=== PATIENT | female | born 2000 | race Two or more races ===

== ENCOUNTER 2021-12-12 08:49 | Emergency (ER) | payer OTHER, SELFPAY ==
--- NOTE | ~2021-12-12 | US_ITS ---
EXAMINATION: US PELVIS CLINICAL INFORMATION: Right lower quadrant pain. Vaginal bleeding The patient reports no chance of COMPARISON: None TECHNIQUE: Ultrasound of the pelvis is performed using both transabdominal and transvaginal transducers along with Doppler. Transvaginal imaging is performed due to inadequate visualization transabdominally. FINDINGS: Uterus: No suspicious abnormality in the region of the vagina. There may be a small nabothian cyst. The uterus is retroverted and measures 6.6 x 4.2 x 5.6 cm. The double wall endometrial thickness is 1.3 cm. Consistent with current menses The uterus is smooth in contour and has normal myometrial echogenicity. No visible fibroid. Adnexa: Both ovaries are visualized. Right ovary measures 2.1 x 1.9 x 1.5 cm. The estimated right ovarian volume is 3 mL. No suspicious right adnexal mass or collection. However, despite repeated efforts no reliable color signal or Doppler spectral waveform could be obtained from the right ovary. This is of uncertain significance. There was some tenderness to transducer pressure in the region of the right ovary. Left ovary measures 4.0 x 2.0 x 2.2 cm. The estimated left ovarian volume is 9 mL. No suspicious left adnexal mass or collection. Small physiologic cysts. There is color signal present within the left ovary. Small amount of nonspecific free pelvic fluid There was some blood present on the transducer cover during the exam. US/US pelvic and transvaginal IMPRESSION: There is no suspicious mass or collection. The ovaries are not enlarged. However, despite repeated efforts no color signal or Doppler spectral could be obtained from the right ovary. This is of uncertain if any clinical significance
[2021-12-12 08:54] VITALS: BP 127/82; PULSE 104; RESP 19; TEMP 36.6; O2SAT 99; BMI 31.0
--- NOTE | 2021-12-12 10:30 | ED_ITS ---
HPI - General Adult General Chief complaint: General Medical Stated complaint: lower abd pain Time Seen by Provider: 12/12/21 10:30 Source: patient Mode of arrival: ambulatory Limitations: no limitations History of Present Illness HPI narrative: Patient is a 21 year old female presenting to the emergency department today with abdominal pain and vaginal bleeding. Patient states that she has been on her period for 6 months now and last month, started control, but that has not stopped her period like she wanted it to. Patient states that the vaginal bleeding is not heavy and she is not soaking through greater than 1 pad an hour. Patient states that her abdominal pain is diffuse. Patient states that she was seen at [facility] days ago, where they did a CT scan, that was negative for anything. Patient states that the pain has been the same and has not gotten any worse. Patient denies any history of children. Patient denies any dizziness, lightheadedness, nausea, vomiting, fever, chills, blurry vision, double vision, loss of vision, chest pain, difficulty breathing, shortness of breath, back pain, night sweats, pain with urination, increased urinary frequency, increased urinary urgency, syncope or a near syncopal episode, recent trauma or falls, bowel incontinence, bladder incontinence, bowel retention, bladder retention, or any other complaints at this time. Onset (ago): month(s) Location: abdomen Radiation: non-radiation Severity: mild Severity scale (1-10): 3 Quality: dull Pain Consistency: intermittent Relieving factors: none Exacerbating factors: none Associated symptoms: other (vaginal bleeding) Treatments prior to arrival: none Related Data Previous Rx's Medication Instructions Recorded doxycycline hyclate 100 mg tablet 100 mg PO BID 14 Days #28 tab 12/12/21 metronidazole 500 mg tablet 500 mg PO BID 14 Days #28 tab 12/12/21 Allergies Allergy/AdvReac Type Severity Reaction Status Date / Time No Known Allergies Allergy Verified 12/12/21 10:43 Review of Systems Constitutional: Constitutional: Reports no additional constitutional complaints, Denies chills, Denies fever(s) and Denies night sweats Eyes: Eyes: Reports no additional eye complaints, Denies blurry vision, Denies change in vision, Denies diplopia, Denies eye discharge, Denies loss of vision and Denies eye pain ENT: Denies dizziness Cardiovascular: Cardiovascular: Reports no additional cardiovascular complaints, Denies chest pain, Denies lightheadedness, Denies Loss of Consciousness and Denies dyspnea Respiratory: Respiratory: Reports no additional respiratory complaints and Denies dyspnea Gastrointestinal: Gastrointestinal: Reports no additional gastrointestinal complaints, Reports abdominal pain, Denies melena, Denies hematochezia, Denies change in bowel habits and Denies change in stool character Genitourinary: Genitourinary: Reports abnormal menses, Reports abnormal vaginal bleeding, Denies hematuria, Denies urinary frequency, Denies dysuria, Denies urinary incontinence, Denies urinary hesitancy and Denies urinary urgency Musculoskeletal: Musculoskeletal: Reports no additional musculoskeletal complaints, Denies numbness and Denies tingling Neurologic: Denies dizziness, Denies loss of vision, Denies numbness and Denies tingling Psychiatric: Psychiatric: Reports no additional psychiatric complaints Endocrine: Endocrine: Reports no additional endocrine complaints Hematologic/Lymphatic: Hematologic/Lymphatic: Reports no additional hematologic/lymphatic complaints Allergic/Immunologic: Allergic/Immunologic: Reports no additional allergic/immunologic complaints PMFSH Past Medical History Attestation statement: The following information was validated with the patient. Source: old records reviewed : 0 Para: 0 Total number of abortions (spontaneous and elective): 0 Social History Social History Alcohol intake: never Patient Tobacco Use Status: Never used Tobacco Use of substances other than those prescribed or required for medical reasons: No Advance Directives: No Advance Directives Information Provided: Yes Patient : No Physical Exam ED Vital Signs: Vital Signs - 24 hr 12/12/21 08:54 12/12/21 12:00 12/12/21 14:00 Temperature 98 F 97.5 F 98.5 F Pulse Rate 104 H 98 94 Respiratory Rate 19 18 16 Blood Pressure 127/82 106/49 L 108/73 Pulse Oximetry 99 98 100 12/12/21 15:08 12/12/21 15:58 Temperature 98.1 F Pulse Rate 85 97 Respiratory Rate 18 16 Blood Pressure 112/67 109/71 Pulse Oximetry 100 99 BMI result Body Mass Index 31.0 Const General: cooperative, no acute distress, alert and awake Nutritional Appearance: well nourished Orientation/consciousness: patient oriented x3 Limitations: no limitations HENMT Head: Yes normal to inspection and Yes atraumatic Ears: hearing grossly normal bilaterally and external ears normal General nose exam: Normal external nose present, no nasal discharge noted and no epistaxis Face and sinus: Yes normal facial exam, No abrasion and No laceration Mouth: Normal oral and palatal mucosa present, no drooling and no muffled voice Eyes General: appearance normal, both eyes and all related structures Periorbital: periorbital findings normal Eyelids: Yes eyelids normal Conjunctivae: conjunctivae normal Pupils: Equal, round and reactive pupils present EOM: EOMs intact bilaterally Neck Neck: Yes normal visual inspection, Yes full ROM and Yes no lymphadenopathy Chest Chest palpation & inspection: normal inspection of the chest Resp Effort & Inspection: normal respiratory effort and able to speak in complete sentences Auscultation: clear to auscultation bilaterally Cardio Rate: regular rate Rhythm: regular rhythm GI Inspection: Yes normal to inspection Palpation (GI): Soft to palpation and Tenderness to palpation present (GI) in the LLQ and in the RLQ; Negative for not at McBurney's point, Lowe's sign negative, obturator sign negative and psoas sign negative External Female Exam: normal external appearance Speculum Exam - Vagina: vaginal bleeding (light) and tenderness bilaterally Speculum Exam - Cervix: normal appearance of the cervix, Cervical os closed and Nabothian cyst present OB/external & speculum: vaginal bleeding (light) Neuro General: patient oriented x3 and moves all extremities Cranial nerves: Yes Equal, round and reactive pupils present Cognition (Neuro): normal cognition Motor exam (neuro): 5/5 motor strength present throughout Sensory Exam: Normal double simultaneous stimulation for sensation Coordination: [id number] test normal Extrem General: Yes normal to inspection, Yes full ROM and Yes capillary refill normal Psych Appearance: grossly normal Mental Status: mental status grossly normal Affect: normal affect Attitude: cooperative Thought process: Normal thought process present Thought content: Normal thought content present Insight: Good insight present (Psych) Medical Decision Making MDM Narrative Medical decision making narrative: Patient is a 21 year old female presenting to the emergency department today with vaginal bleeding and abdominal pain. Patient's physical exam showed diffuse abdominal pain and mild blood on speculum exam. Additionally, the patient had tendernss during entire speculum and bimanual exam. Patient's blood work was unremarkable. Patient's transvaginal ultrasound showed no acute process. I exp lained my physical exam findings as well as all test results to the patient. I answered all questions asked by the patient. I stressed the importance of the patient taking her antibiotics as prescribed. I stressed the importance of the patient following up with an OBGYN.I stressed the importance of the patient following up with her primary care provider. I stressed the importance of the patient returning to the emergency department immediately if her symptoms were to worsen or if she were to develop any dizziness, shortness of breath, difficulty breathing, chest pain, blurry vision, loss of vision, nausea, vomiting, abdominal pain, fever, chills, back pain, or any other complaints. Patient verbalized agreement and understanding with this treatment plan and discharge. Differential Diagnosis Differential Diagnosis: PID, ovarian torsion, abnormal uterine bleeding Medical Records Medical records reviewed: Yes I reviewed the patient's medical records. Lab Data Lab results reviewed: Yes I reviewed the patient's lab results. Result diagrams: 12/12/21 11:13 12/12/21 11:13 Labs: Lab Results 12/12/21 12/12/21 12/12/21 Range/Units 11:12 11:13 11:13 WBC 8.5 (4.8-10.8) X10*3/uL RBC 4.38 (4.20-5.50) X10*6/uL Hgb 12.3 (12.0-16.0) g/dl Hct 38.1 (37.0-47.0) % MCV 87.0 (80.0-98.0) fL MCH 28.1 (27.0-33.0) pg MCHC 32.3 (31.0-35.0) g/dl RDW 13.8 (11.0-16.0) % Plt Count 359 (160-400) X10*3/uL MPV 9.0 L (9.4-12.3) fL Immature Gran % (Auto) 0.4 (0.0-0.4) % Neut % (Auto) 72.9 (45-73) % Lymph % (Auto) 20.4 (20-40) % Phillips % (Auto) 5.6 (2-11) % Eos % (Auto) 0.6 (0-4) % Baso % (Auto) 0.1 (0-2) % Lymph # (Auto) 1.7 (1.2-4.9) X10*3/uL Phillips # (Auto) 0.5 (0.1-1.2) X10*3/uL Eos # (Auto) 0.1 (0.0-0.4) X10*3/uL Baso # (Auto) 0.0 (0.0-0.2) X10*3/uL Abs Immat Gran (auto) 0.03 (0.00-0.03) X10*3/uL Absolute Neuts (auto) 6.2 (2.0-8.3) x10*3/uL Absolute Nucleated RBC 0.000 (0.0-0.012) X10*3/uL Nucleated RBC % (auto) 0.0 (0.0-0.2) /100WBC Sodium 137 (135-145) mmol/L Potassium 4.4 (3.3-5.1) mmol/L Chloride 103 (96-108) mmol/L Carbon Dioxide 25 (22-29) mmol/L Anion Gap 13 (12-20) BUN 8 L (9-16) mg/dL Creatinine 0.70 (0.5-1.4) mg/dL Estim Creat Clear Calc 111.7 Estimated GFR > 60 Fasting Glucose 91 (60-99) mg/dL Calcium 9.0 (8.4-10.2) mg/dL Total Bilirubin 0.4 (0.0-1.0) mg/dL AST 34 H (5-31) U/L ALT 52 H (0-31) U/L Alkaline Phosphatase 54 (39-117) U/L Total Protein 7.1 (6.5-8.0) g/dL Albumin 4.1 (3.5-5.0) g/dL Beta HCG, Quant < 2 mIU/mL Urine Color YELLOW Urine Appearance HAZY Urine pH 7.0 (5.0-8.0) Ur Specific [place] 1.020 (1.005-1.025) Urine Protein NEG (NEG-TRACE) MG/DL Urine Glucose (UA) NEG (NEG) MG/DL Urine Ketones NEG (NEG) MG/DL Urine Blood 3+ H (NEG) Urine Nitrite NEG (NEG) Ur Leukocyte Esterase NEG (NEG) Urine RBC 76-150 H (0) /HPF Urine WBC 0 (0-4) /HPF Ur Squamous Epith Cells TRACE /LPF Urine Bacteria NONE /LPF Imaging Data Transvaginal US: Attestation: I personally reviewed and interpreted this imaging study as follows: Radiologist's impression: EXAMINATION:? US PELVIS CLINICAL INFORMATION:? Right lower quadrant pain. Vaginal bleeding The patient reports no chance of COMPARISON: None TECHNIQUE: Ultrasound of the pelvis is performed using both transabdominal and transvaginal transducers along with Doppler. Transvaginal imaging is performed due to inadequate visualization transabdominally. FINDINGS: Uterus: No suspicious abnormality in the region of the vagina. There may be a small nabothian cyst. The uterus is retroverted and measures 6.6 x 4.2 x 5.6 cm. The double wall endometrial thickness is 1.3 cm. Consistent with current menses The uterus is smooth in contour and has normal myometrial echogenicity. ? No visible fibroid. Adnexa: Both ovaries are visualized. Right ovary measures 2.1 x 1.9 x 1.5 cm. The estimated right ovarian volume is 3 mL. No suspicious right adnexal mass or collection. However, despite repeated efforts no reliable color signal or Doppler spectral waveform could be obtained from the right ovary. This is of uncertain significance. There was some tenderness to transducer pressure in the region of the right ovary. Left ovary measures 4.0 x 2.0 x 2.2 cm. The estimated left ovarian volume is 9 mL. No suspicious left adnexal mass or collection. Small physiologic cysts. There is color signal present within the left ovary. Small amount of nonspecific free pelvic fluid There was some blood present on the transducer cover during the exam. US/US pelvic and transvaginal IMPRESSION: There is no suspicious mass or collection. ? The ovaries are not enlarged. ? However, despite repeated efforts no color signal or Doppler spectral could be obtained from the right ovary. This is of uncertain if any clinical significance Dictated By: Yonas Graff MD Signed By: Electronically signed by Yonas Graff MD 12/12/21 Discharge Plan Discharge Clinical Impression: Acute pelvic inflammatory disease (PID) Patient Disposition: Home, Self-Care Instructions: Pelvic Inflammatory Disease (ED), Pelvic Pain (ED) Additional Instructions: Follow up with your primary care provider. Return to the emergency department immediately if your symptoms worsen or if you develop any dizziness, shortness of breath, difficulty breathing, chest pain, blurry vision, loss of vision, nausea, vomiting, abdominal pain, fever, chills, back pain, or any other complaints. Prescriptions: New doxycycline hyclate 100 mg tablet 100 mg PO BID 14 Days Qty: 28 0RF metronidazole 500 mg tablet 500 mg PO BID 14 Days Qty: 28 0RF Referrals: Joseph Vance MD [Physician] - 2 days Stand Alone Forms: Work/School Release Interventions: ED Discharge Assessment Last Done: 12/12/21 16:24 Print Language: Vincentian
[2021-12-12] MEDS: Ketorolac Tromethamine 30 MG/ML VIAL IM (11:07)
--- NOTE | 2021-12-12 11:08 | PC.NURSE ---
patient a&ox3, vss, pt medicated for rt abd pain 07/10, tech to draw labs/obtain urine, call philippe within reach, will continue to monitor
[2021-12-12 11:18] LABS: MANUAL DIFF FLAG NO
[2021-12-12 11:21] LABS: Appearance Urine HAZY; Color Urine YELLOW; Glucose Urine UA NEG (NEG); Leukocyte Esterase Urine NEG (NEG); Nitrite Urine NEG (NEG); UACC Culture Trigger NO; Urine Blood 3+ (NEG); Urine Ketones NEG (NEG); Urine Protein NEG (NEG-TRACE)
[2021-12-12 11:21] LABS: Basophils Percent Auto 0.1 % (0-2); Eosinophils Absolute Auto 0.1 X10*3/uL (0.0-0.4); Eosinophils Percent Auto 0.6 % (0-4); Hematocrit 38.1 % (37.0-47.0); Hemoglobin 12.3 g/dl (12.0-16.0); Imm Gran Abs Auto 0.03 X10*3/uL (0.00-0.03); Imm Gran Pct Auto 0.4 % (0.0-0.4); Lymphocytes Absolute Auto 1.7 X10*3/uL (1.2-4.9); Lymphocytes Percent Auto 20.4 % (20-40); Mean Corpuscular HGB Conc 32.3 g/dl (31.0-35.0); Mean Corpuscular Hemoglobin 28.1 pg (27.0-33.0); Monocytes Absolute Auto 0.5 X10*3/uL (0.1-1.2); Monocytes Percent Auto 5.6 % (2-11); Neutrophils Absolute Auto 6.2 x10*3/uL (2.0-8.3); Neutrophils Percent Auto 72.9 % (45-73); Platelet Count 359 X10*3/uL (160-400); Red Blood Count 4.38 X10*6/uL (4.20-5.50); Red Cell Distribution Width 13.8 % (11.0-16.0); White Blood Count 8.5 X10*3/uL (4.8-10.8)
[2021-12-12 11:31] LABS: Squamous Epithelial Cell Urine TRACE /LPF; WBC Urine 0 /HPF (0-4)
[2021-12-12 11:44] LABS: HCG Quantitative < 2 mIU/mL
[2021-12-12 11:51] LABS: Alanine Aminotransferase 52 U/L (0-31); Albumin Level 4.1 g/dL (3.5-5.0); Alkaline Phosphatase 54 U/L (39-117); Anion Gap 13 (12-20); Aspartate Amino Transferase 34 U/L (5-31); Bilirubin Total 0.4 mg/dL (0.0-1.0); Blood Urea Nitrogen 8 mg/dL (9-16); Carbon Dioxide 25 mmol/L (22-29); Chloride 103 mmol/L (96-108); Creatinine Clr Calc Pharmacy 111.7; Estimated Glomerular Filt Rate > 60; Glucose Fasting 91 mg/dL (60-99); Potassium 4.4 mmol/L (3.3-5.1); Sodium 137 mmol/L (135-145); Total Protein 7.1 g/dL (6.5-8.0)
[2021-12-12 12:00] VITALS: BP 106/49; PULSE 98; RESP 18; TEMP 36.4; O2SAT 98
[2021-12-12 14:00] VITALS: BP 108/73; PULSE 94; RESP 16; TEMP 36.9; O2SAT 100
--- NOTE | 2021-12-12 14:22 | PC.NURSE ---
pt a&ox3, vss, reporting 6/10 pain, waiting for u/s results, will continue to monitor
[2021-12-12 15:08] VITALS: BP 112/67; PULSE 85; RESP 18; TEMP 36.7; O2SAT 100
[2021-12-12 15:58] VITALS: BP 109/71; PULSE 97; RESP 16; O2SAT 99
--- NOTE | 2021-12-12 16:00 | PC.NURSE ---
pt a&ox3, vss, this nurse was in the room for internal vaginal exam, samples sent to the lab.
[2021-12-12] MEDS: cefTRIAXone sodium 500 MG, Lidocaine HCl 1 % MPF 1 ML IM (16:07)
--- NOTE | 2021-12-12 16:08 | PC.NURSE ---
patient medicated with antibiotics per order
[2021-12-13 15:07] LABS: CT PCR NOT DETECTED (Not Detect.); NG PCR NOT DETECTED (Not Detect.)
== END 2021-12-12 16:27 | disposition home or self-care (01) ==
PROVIDERS: Physician Assistant Medical; Emergency Provider Emergency Medicine Emergency Medical Services
DX: N73.0 Acute parametritis and pelvic cellulitis (principal); R10.9 Unspecified abdominal pain; N93.9 Abnormal uterine and vaginal bleeding, unspecified
CPT/HCPCS: 36415; 76830; 76856; 80053; 81001; 84702; 85025; 87491; 87591; 96372; 99284; J0696; J1885

== ENCOUNTER → 2021-12-28 11:22 | Outpatient (BNVA) | payer OTHER, SELFPAY | PROVIDERS: Visit Provider Obstetrics & Gynecology | DX: N73.0 Acute parametritis and pelvic cellulitis (principal); R79.89 Other specified abnormal findings of blood chemistry | CPT/HCPCS: 99212 ==